=== PATIENT | female | born 1945 | race Caucasian/White ===

== ENCOUNTER 2025-01-16 23:52 | Inpatient (IN) | payer MEDICARE, OTHER ==
[~2025-01-16] VITALS: Ht 149.9 cm; Wt 75.7 kg
[2025-01-17 00:21] LABS: BASOPHILS % (AUTO) 0.3 % (0.0-2.0); EOSINOPHILS # (AUTO) 0.1 K/uL (0.0-0.7); EOSINOPHILS % (AUTO) 1.2 % (0.0-6.0); HEMATOCRIT 35 % (33-45); HEMOGLOBIN 12.1 g/dL (11.5-14.8); LYMPHOCYTES # (AUTO) 1.9 K/uL (0.8-4.8); LYMPHOCYTES % (AUTO) 32.6 % (20.0-44.0); MEAN CORPUSCULAR HEMOGLOBIN 32 PG (26.0-33.0); MEAN CORPUSCULAR HGB CONC 35 g/dl (31.0-36.0); MEAN CORPUSCULAR VOLUME 93 fL (82-100); MONOCYTES # (AUTO) 1.3 K/uL (0.1-1.30); MONOCYTES % (AUTO) 21.4 % (2.0-12.0); NEUTROPHILS # (AUTO) 2.6 K/uL (1.8-8.9); NEUTROPHILS % (AUTO) 44.5 % (43.0-81.0); PLATELET COUNT (AUTO) 213 K/uL (150-450); RED BLOOD CELL COUNT(AUTO) 3.76 MIL/uL (4.0-5.2); RED CELL DISTRIBUTION WIDTH 13.1 % (11.5-15.0)
[2025-01-17 00:38] LABS: CALCIUM, SERUM 8.8 mg/dL (8.5-10.1); CARBON DIOXIDE 20 mmol/L (21-32); CHLORIDE 93 mmol/L (98-107); GLUCOSE 124 mg/dL (74-106); POTASSIUM 5.3 mmol/L (3.5-5.1); SODIUM SERUM 121 mmol/L (136-145); UREA NITROGEN, BLOOD 34 mg/dL (7-18)
[2025-01-17 00:42] LABS: ALANINE AMINOTRANSFERASE 40 U/L (12-78); ALBUMIN 2.8 g/dL (3.4-5.0); ALKALINE PHOSPHATASE 64 U/L (46-116); ASPARTATE AMINOTRANSFERASE 39 U/L (15-37); BILIRUBIN,DIRECT 0.2 mg/dL (0.0-0.2); BILIRUBIN,TOTAL 0.4 mg/dL (0.2-1.0); TOTAL PROTEIN, SERUM 8.1 g/dL (6.4-8.2)
[2025-01-17 00:45] LABS: ACETAMINOPHEN <10 ug/ml (10-30); ALCOHOL, BLOOD < 3 mg/dL (0-10); SALICYLATE 2.1 mg/dL (2.8-20.0)
[2025-01-17 02:20] LABS: ANISOCYTOSIS 1+; BAND % (MANUAL) 5 % (0.0-5.0); EOSINOPHILS % (MANUAL) 2 % (0-4); LYMPHOCYTES % (MANUAL) 25 % (16-48); MONOCYTES % (MANUAL) 19 % (0-11.0); NEUTROPHILS % (MANUAL) 49 (42-76); PLATELET ESTIMATE ADEQUATE
[2025-01-17] MEDS ORDERED: CALCIUM CHLORIDE 1,000 MG/10 ML DISP.SYRIN ONE (03:27)
[2025-01-17] MEDS ORDERED: SODIUM ZIRCONIUM CYCLOSILICATE 10 GM POWD.PACK ONE (03:28)
[2025-01-17] MEDS: CALCIUM CHLORIDE 1,000 MG/10 ML DISP.SYRIN IV ONE (03:38)
[2025-01-17] MEDS: SODIUM ZIRCONIUM CYCLOSILICATE 10 GM POWD.PACK PO ONE (03:38)
[2025-01-17] MEDS ORDERED: MAG HYDROX/AL HYDROX/SIMETH 30 ML UDC PO PRN (04:00)
[2025-01-17] MEDS ORDERED: ZOLPIDEM TARTRATE 5 MG TABLET PO PRN (04:00)
[2025-01-17] MEDS ORDERED: ONDANSETRON HCL/PF 4 MG/2 ML VIAL IVP PRN (04:00)
[2025-01-17] MEDS ORDERED: Z GUARD REMEDY 4 OZ OINT TP PRN (04:00)
[2025-01-17 04:10] VITALS: BP 145/70; TEMP 98.4; O2SAT 98
[2025-01-17 04:39] LABS: AMPHETAMINE, URINE NEGATIVE (NEGATIVE); APPEARANCE,URINE TURBID (CLEAR); BARBITURATE, URINE NEGATIVE (NEGATIVE); BENZODIAZEPINE, URINE NEGATIVE (NEGATIVE); CANNABINOID, URINE NEGATIVE (NEGATIVE); COCCAINE, URINE NEGATIVE (NEGATIVE); COLOR,URINE RED (YELLOW); LEUKOCYTE ESTERASE ,URINE 3+ (NEGATIVE); NITRITE, URINE NEGATIVE (NEGATIVE); OPIATE, URINE NEGATIVE (NEGATIVE); PHENCYCLIDINE SCREEN,URINE NEGATIVE (NEGATIVE)
[2025-01-17 04:40] LABS: BILIRUBIN,URINE NEGATIVE (NEGATIVE); BLOOD, URINE 3+ Ery/uL (NEGATIVE); KETONES,URINE NEGATIVE (NEGATIVE); PROTEIN,URINE 2+ mg/dl (NEGATIVE); UGLUCOSE NEGATIVE (NEGATIVE); UROBILINOGEN,URINE 0.2 EU/dL (0.2)
[2025-01-17 04:41] LABS: ADD URINE CULTURE YES; BACTERIA,URINE Few /HPF (None Seen); RBC,URINE 21-50 /HPF (0-2); SQUAMOUS EPITHELIAL CELL,UR Rare /HPF (None Seen); WBC,URINE TOO NUMEROUS TO COUN /HPF (0-3)
[2025-01-17] MEDS ORDERED: MELO-105 PO (04:54)
[2025-01-17] MEDS ORDERED: METO-357 PO (04:54)
[2025-01-17] MEDS ORDERED: LISI40TA13 PO (04:54)
[2025-01-17] MEDS ORDERED: ATOR10TA PO (04:54)
[2025-01-17] MEDS ORDERED: FLUT16SP BNOSTRILS (04:54)
[2025-01-17] MEDS ORDERED: FURO20TA4 PO (04:54)
[2025-01-17] MEDS ORDERED: METF-440 PO (04:54)
[2025-01-17] MEDS ORDERED: SENN-175 PO (04:54)
[2025-01-17] MEDS ORDERED: MAGN400O21 PO (04:54)
[2025-01-17] MEDS ORDERED: CRAN400C PO (04:54)
[2025-01-17] MEDS ORDERED: DOCU-141 PO (04:54)
[2025-01-17] MEDS ORDERED: EMPA10TA PO (04:54)
[2025-01-17] MEDS ORDERED: INSU100I8 SQ (04:54)
[2025-01-17] MEDS ORDERED: ONDA-97 PO (04:54)
[2025-01-17] MEDS ORDERED: RISP3TAB61 PO (04:54)
[2025-01-17] MEDS ORDERED: GABA-532 PO (04:54)
[2025-01-17] MEDS: IV NS 0.9% 1,000 ML IV PRN (06:02)
[2025-01-17] MEDS: PANTOPRAZOLE 40 MG TABLET.DR PO SCH (07:48)
[2025-01-17] MEDS: HYDROCODONE/APAP 5/325MG TABLET PO PRN (07:49)
[2025-01-17] MEDS ORDERED: MAGN400O6 PO (07:57)
[2025-01-17] MEDS ORDERED: FLUT200B IH (07:57)
[2025-01-17] MEDS ORDERED: [UNRECOGNIZED DRUG - CODE] MM (07:57)
[2025-01-17] MEDS ORDERED: CRAN300T PO (07:57)
[2025-01-17 08:00] VITALS: BP 160/96; TEMP 98.6; O2SAT 100
[2025-01-17] MEDS: GABAPENTIN 100 MG CAPSULE PO SCH (09:58)
[2025-01-17] MEDS: risperiDONE 1 MG TABLET PO SCH (09:58)
[2025-01-17] MEDS ORDERED: DOCUSATE SODIUM 100 MG CAPSULE PO PRN (10:00)
[2025-01-17] MEDS: METOPROLOL SUCCINATE 50 MG TAB.SR.24H PO SCH (10:00)
[2025-01-17] MEDS: PHENAZOPYRIDINE HCL 200 MG TABLET PO PRN (10:04)
[2025-01-17] MEDS: MORPHINE SULFATE INJ 2 MG/ML DISP.SYRIN IV PRN (10:57)
[2025-01-17 13:00] VITALS: BP 96/70; TEMP 98.4; O2SAT 97
[2025-01-17 13:29] LABS: CALCIUM, SERUM 9.1 mg/dL (8.5-10.1)
[2025-01-17 13:35] LABS: POTASSIUM 5.4 mmol/L (3.5-5.1)
[2025-01-17 13:51] LABS: BASOPHILS % (AUTO) 0.3 % (0.0-2.0); EOSINOPHILS % (AUTO) 0.2 % (0.0-6.0); HEMATOCRIT 33 % (33-45); HEMOGLOBIN 11.5 g/dL (11.5-14.8); LYMPHOCYTES # (AUTO) 1.3 K/uL (0.8-4.8); LYMPHOCYTES % (AUTO) 18.7 % (20.0-44.0); MEAN CORPUSCULAR HEMOGLOBIN 33 PG (26.0-33.0); MEAN CORPUSCULAR HGB CONC 35 g/dl (31.0-36.0); MEAN CORPUSCULAR VOLUME 95 fL (82-100); MONOCYTES # (AUTO) 1.2 K/uL (0.1-1.30); MONOCYTES % (AUTO) 17.2 % (2.0-12.0); NEUTROPHILS # (AUTO) 4.4 K/uL (1.8-8.9); NEUTROPHILS % (AUTO) 63.6 % (43.0-81.0); PLATELET COUNT (AUTO) 214 K/uL (150-450); RED BLOOD CELL COUNT(AUTO) 3.51 MIL/uL (4.0-5.2); RED CELL DISTRIBUTION WIDTH 13.3 % (11.5-15.0); WHITE BLOOD COUNT (AUTO) 6.8 K/uL (4.3-11.0)
[2025-01-17 16:00] VITALS: BP 130/60; TEMP 99; O2SAT 98
[2025-01-17] MEDS: IV Sodium Chloride 3% 500 ML 500 ML IV SCH (18:12)
[2025-01-17 19:46] LABS: OSMOLALITY,SERUM 270 mOS/kg (278-305)
[2025-01-17 19:47] LABS: OSMOLALITY,URINE 325 mOS/kg (340-1090)
[2025-01-17 20:00] VITALS: BP 112/74; TEMP 98.2; O2SAT 98
[2025-01-17] MEDS: ATORVASTATIN 10 MG TABLET PO SCH (22:09)
[2025-01-17] MEDS: SENNOSIDES 8.6 MG TABLET PO SCH (22:09)
[2025-01-17 22:20] VITALS: BP 112/74; TEMP 98.2; O2SAT 98
[2025-01-18] VITALS (7 sets, daily range): BP systolic 93–155; BP diastolic 52–70; TEMP 98.1–99.1; O2SAT 95–99
[2025-01-18] MEDS: ACETAMINOPHEN 325 MG TABLET PO PRN (00:18)
[2025-01-18] MEDS: EMPAGLIFLOZIN 10 MG TABLET PO SCH (08:29)
[2025-01-18] MEDS: LISINOPRIL (20MG) 20 MG TABLET PO SCH (08:30)
[2025-01-18 11:05] LABS: BASOPHILS % (AUTO) 0.3 % (0.0-2.0); EOSINOPHILS % (AUTO) 0.7 % (0.0-6.0); HEMATOCRIT 28 % (33-45); HEMOGLOBIN 9.6 g/dL (11.5-14.8); LYMPHOCYTES # (AUTO) 1.6 K/uL (0.8-4.8); MEAN CORPUSCULAR HEMOGLOBIN 33 PG (26.0-33.0); MEAN CORPUSCULAR HGB CONC 35 g/dl (31.0-36.0); MEAN CORPUSCULAR VOLUME 96 fL (82-100); MONOCYTES # (AUTO) 1.6 K/uL (0.1-1.30); MONOCYTES % (AUTO) 24.3 % (2.0-12.0); NEUTROPHILS # (AUTO) 3.3 K/uL (1.8-8.9); NEUTROPHILS % (AUTO) 49.7 % (43.0-81.0); PLATELET COUNT (AUTO) 182 K/uL (150-450); RED BLOOD CELL COUNT(AUTO) 2.89 MIL/uL (4.0-5.2); RED CELL DISTRIBUTION WIDTH 13.2 % (11.5-15.0); WHITE BLOOD COUNT (AUTO) 6.5 K/uL (4.3-11.0)
[2025-01-18 11:13] LABS: MAGNESIUM 1.6 mg/dL (1.8-2.4); POTASSIUM 4.6 mmol/L (3.5-5.1)
[2025-01-18 11:22] LABS: CALCIUM, SERUM 8.2 mg/dL (8.5-10.1)
[2025-01-18 11:59] LABS: LYMPHOCYTES % (MANUAL) 36 % (16-48); MONOCYTES % (MANUAL) 14 % (0-11.0); NEUTROPHILS % (MANUAL) 50 (42-76); PLATELET ESTIMATE ADEQUATE
[2025-01-18 12:17] LABS: THYROID STIMULATING HORMONE 0.89 uIU/mL (0.358-3.74)
[2025-01-18] MEDS: CEFTRIAXONE 1 G in IV D5W 50 ML IV SCH (12:18)
[2025-01-18 13:07] LABS: CALCIUM, SERUM 7.8 mg/dL (8.5-10.1); POTASSIUM 4.2 mmol/L (3.5-5.1)
[2025-01-19] VITALS (9 sets, daily range): BP systolic 122–143; BP diastolic 64–98; TEMP 98.1–102.4; O2SAT 95–99
[2025-01-19] MEDS: BUDESONIDE RESPULE INH 0.5 MG/2 ML AMPUL.NEB IH SCH (08:01)
[2025-01-19] MEDS: MAGNESIUM HYDROXIDE 30 ML UDC PO PRN (09:38)
[2025-01-20] VITALS (13 sets, daily range): BP systolic 108–156; BP diastolic 51–76; TEMP 97.3–100; O2SAT 95–99
[2025-01-20 06:33] LABS: BASOPHILS % (AUTO) 0.2 % (0.0-2.0); EOSINOPHILS % (AUTO) 0.6 % (0.0-6.0); HEMATOCRIT 29 % (33-45); HEMOGLOBIN 9.5 g/dL (11.5-14.8); LYMPHOCYTES # (AUTO) 1.7 K/uL (0.8-4.8); LYMPHOCYTES % (AUTO) 22.5 % (20.0-44.0); MEAN CORPUSCULAR HEMOGLOBIN 32 PG (26.0-33.0); MEAN CORPUSCULAR HGB CONC 33 g/dl (31.0-36.0); MEAN CORPUSCULAR VOLUME 95 fL (82-100); MONOCYTES # (AUTO) 1.4 K/uL (0.1-1.30); NEUTROPHILS # (AUTO) 4.5 K/uL (1.8-8.9); NEUTROPHILS % (AUTO) 58.7 % (43.0-81.0); PLATELET COUNT (AUTO) 219 K/uL (150-450); RED BLOOD CELL COUNT(AUTO) 3.01 MIL/uL (4.0-5.2); WHITE BLOOD COUNT (AUTO) 7.6 K/uL (4.3-11.0)
[2025-01-20 07:13] LABS: CALCIUM, SERUM 8.2 mg/dL (8.5-10.1); CREATININE 0.6 mg/dL (0.6-1.3); PHOSPHORUS 3.1 mg/dL (2.5-4.9); POTASSIUM 4.6 mmol/L (3.5-5.1)
[2025-01-20 11:07] LABS: LYMPHOCYTES % (MANUAL) 12 % (16-48); MONOCYTES % (MANUAL) 13 % (0-11.0); NEUTROPHILS % (MANUAL) 75 (42-76)
[2025-01-20 11:08] LABS: ANISOCYTOSIS 1+; PLATELET ESTIMATE ADEQUATE
[2025-01-20] MEDS ORDERED: DOSING PER PHARMACY-AMIKACI IV XX PRN (15:30)
[2025-01-20] MEDS: AMIKACIN 1,000 MG in IV D5W 100 ML IV SCH (17:43)
[2025-01-21] VITALS (9 sets, daily range): BP systolic 105–158; BP diastolic 62–84; TEMP 98.2–99.1; O2SAT 96–99
[2025-01-22] VITALS: BP 140/65; TEMP 98.1; O2SAT 100
[2025-01-22 04:00] VITALS: BP 156/72; TEMP 98.1; O2SAT 97
[2025-01-22 07:26] VITALS: O2SAT 98
[2025-01-22 08:00] VITALS: BP 142/70; TEMP 98.2; O2SAT 94
[2025-01-22 09:22] VITALS: BP 142/70
[2025-01-22 10:03] LABS: BASOPHILS % (AUTO) 0.2 % (0.0-2.0); EOSINOPHILS % (AUTO) 0.5 % (0.0-6.0); HEMATOCRIT 30 % (33-45); LYMPHOCYTES # (AUTO) 2.8 K/uL (0.8-4.8); LYMPHOCYTES % (AUTO) 31.4 % (20.0-44.0); MEAN CORPUSCULAR HEMOGLOBIN 31 PG (26.0-33.0); MEAN CORPUSCULAR HGB CONC 33 g/dl (31.0-36.0); MEAN CORPUSCULAR VOLUME 94 fL (82-100); MONOCYTES % (AUTO) 11.6 % (2.0-12.0); NEUTROPHILS # (AUTO) 5.1 K/uL (1.8-8.9); NEUTROPHILS % (AUTO) 56.3 % (43.0-81.0); PLATELET COUNT (AUTO) 262 K/uL (150-450); RED CELL DISTRIBUTION WIDTH 13.3 % (11.5-15.0)
[2025-01-22 10:14] LABS: MAGNESIUM 1.9 mg/dL (1.8-2.4); PHOSPHORUS 3.4 mg/dL (2.5-4.9)
[2025-01-22 10:22] LABS: CALCIUM, SERUM 8.1 mg/dL (8.5-10.1); CREATININE 0.9 mg/dL (0.6-1.3); POTASSIUM 3.8 mmol/L (3.5-5.1)
[2025-01-22] MEDS ORDERED: AMIK250V8 IV (13:25)
[2025-01-22 15:26] LABS: EOSINOPHILS % (MANUAL) 1 % (0-4); LYMPHOCYTES % (MANUAL) 29 % (16-48); MONOCYTES % (MANUAL) 7 % (0-11.0); NEUTROPHILS % (MANUAL) 63 (42-76); PLATELET ESTIMATE ADEQUATE
[2025-01-22 15:27] LABS: ANISOCYTOSIS 1+
[2025-01-22] MEDS ORDERED: PROSOURCE / PROSTAT (PYXIS) 30 ML UDC PO SCH (17:00)
[2025-01-23] MEDS ORDERED: GLUCERNA SHAKE 237 ML CAN PO SCH (09:00)
[2025-01-23] MEDS ORDERED: AMIKACIN 1,000 MG in IV D5W 100 ML IV SCH (12:00)
== END 2025-01-22 15:48 | DRG 640 ==
LOC: ER 23:56 → MED 01-17 03:49 → TELE 01-17 04:14
PROVIDERS: ADMIT Nurse Practitioner Acute Care; ATTEND Nurse Practitioner Family
DX: E87.1 Hypo-osmolality and hyponatremia (principal); G93.41 Metabolic encephalopathy; N39.0 Urinary tract infection, site not specified; E44.0 Moderate protein-calorie malnutrition; R45.1 Restlessness and agitation; Z73.6 Limitation of activities due to disability; E78.5 Hyperlipidemia, unspecified; Z20.822 Contact with and (suspected) exposure to COVID-19; F03.90 Unspecified dementia, unspecified severity, without behavioral disturbance, psychotic disturbance, mood disturbance, and anxiety; I10 Essential (primary) hypertension; J45.909 Unspecified asthma, uncomplicated; E11.9 Type 2 diabetes mellitus without complications; F25.9 Schizoaffective disorder, unspecified; E87.5 Hyperkalemia; E88.09 Other disorders of plasma-protein metabolism, not elsewhere classified; L89.156 Pressure-induced deep tissue damage of sacral region; B96.1 Klebsiella pneumoniae [K. pneumoniae] as the cause of diseases classified elsewhere; Z86.69 Personal history of other diseases of the nervous system and sense organs
CPT/HCPCS: 36415; 70450-TC; 71045-TC; 76770-TC; 80048-TC; 80061-TC; 80076-TC; 80150; 81001; 82962-TC; 83735-TC; 83935-TC; 84100-TC; 84300-TC; 84443-TC; 85025-TC; 87040-TC; 87081-TC; 87086-TC; 87186-TC; 94799-TC; A4223; G0378; G0480; J0278; J0696; J2270; J3490; J7030; J7060